=== PATIENT | male | born 1990 | race Two or more races ===

== ENCOUNTER 2019-10-10 22:58 | Emergency (ER) | payer SELFPAY ==
[~2019-10-10] VITALS: Ht 172.7 cm; Wt 90.7 kg
--- NOTE | 2019-10-10 23:33 | NUR ---
BIB FROM STREET FOR ALCOHOL INTOXICATION. PT AWAKE, APPEARS INTOXICATED ON ARRIVAL. YELLING INCOHERENTLY. RESPIRATIONS EVEN AND UNLABORED. SKIN INTACT. NO ACUTE DISTRESS NOTED AT THIS TIME. WILL CONTINUE TO MONITOR
[2019-10-10 23:40] LABS: BASOPHILS # (AUTO) 0.1 /CMM (0.0-0.2); BASOPHILS % (AUTO) 0.8 % (0.0-2.0); EOSINOPHILS % (AUTO) 0.8 % (0.0-6.0); HEMATOCRIT 52 % (39-51); HEMOGLOBIN 16.9 g/dL (13.5-17.5); LYMPHOCYTES # (AUTO) 3.7 /CMM (0.8-4.8); LYMPHOCYTES % (AUTO) 32.4 % (20.0-44.0); MEAN CORPUSCULAR HGB CONC 33 g/dl (31.0-36.0); MEAN CORPUSCULAR VOLUME 89 fL (80-96); MONOCYTES % (AUTO) 8.9 % (2.0-12.0); NEUTROPHILS # (AUTO) 6.5 /CMM (1.8-8.9); NEUTROPHILS % (AUTO) 57.1 % (43.0-81.0); PLATELET COUNT (AUTO) 326 /CMM (150-450); RED BLOOD CELL COUNT(AUTO) 5.83 MIL/uL (4.5-6.0); WHITE BLOOD COUNT (AUTO) 11.3 K/uL (4.3-11.0)
[2019-10-10 23:53] LABS: CALCIUM, SERUM 8.6 mg/dL (8.5-10.1); CREATININE 0.7 mg/dL (0.6-1.3); POTASSIUM 3.5 mmol/L (3.5-5.1)
[2019-10-10 23:59] LABS: ALBUMIN 4.2 g/dL (3.4-5.0); BILIRUBIN,TOTAL 0.2 mg/dL (0.2-1.0); SALICYLATE 4.3 mg/dL (2.8-20.0); TOTAL PROTEIN, SERUM 8.5 g/dL (6.4-8.2)
--- NOTE | 2019-10-11 00:07 | NUR ---
UNABLE TO OBTAIN EKG DUE TO MOVEMENT FROM PATIENT. WILL ATTEMPT AGAIN LATER.
[2019-10-11] MEDS ORDERED: IV NS 0.9% 1,000 ML IV ONE (00:30)
--- NOTE | 2019-10-11 00:33 | NUR ---
PT TAKEN TO CT
--- NOTE | 2019-10-11 01:00 | NUR ---
PT UNABLE TO PROVIDE URINE SAMPLE AT THIS TIME. MD BENNETT
--- NOTE | 2019-10-11 01:02 | NUR ---
UNABLE TO OBTAIN EKG DUE TO MOVEMENT FROM PATIENT. WILL ATTEMPT AGAIN LATER.
--- NOTE | 2019-10-11 01:27 | NUR ---
ER DOC OKAY CANCELLING EKG ORDER AND ONLY NEED 4 LEAD RYTHM STRIP.
--- NOTE | 2019-10-11 01:35 | NUR ---
PT ON CONSTANT OBSERVATION. 1:1 SITTER AT BEDSIDE FOR SAFETY. FALL PRECAUTIONS STILL IMPLEMENTED. NO ACUTE DISTRESS NOTED. WILL CONTINUE TO MONITOR.
--- NOTE | 2019-10-11 03:12 | NUR ---
PT ON CONSTANT OBSERVATION. 1:1 SITTER AT BEDSIDE FOR SAFETY. STILL ON FALL PRECAUTIONS WELL. NO ACUTE DISTRESS NOTED. WILL CONTINUE TO MONITOR.
--- NOTE | 2019-10-11 04:19 | NUR ---
PT ASLEEP AND ON CONSTANT OBSERVATION. 1:1 SITTER AT BEDSIDE FOR SAFETY. STILL ON FALL PRECAUTIONS WELL. NO ACUTE DISTRESS NOTED. WILL CONTINUE TO MONITOR.
--- NOTE | 2019-10-11 07:22 | NUR ---
PT ASLEEP AND ON CONSTANT OBSERVATION. 1:1 SITTER AT BEDSIDE FOR SAFETY. STILL ON FALL PRECAUTIONS WELL. NO ACUTE DISTRESS NOTED. WILL CONTINUE TO MONITOR.
--- NOTE | 2019-10-11 07:23 | NUR ---
REPORT GIVEN TO ELPIDIO MINA FOR JERZY
--- NOTE | 2019-10-11 07:33 | NUR ---
PT AWAKE, AAOX4. AMBULATORY WITH STEADY GAIT. PER DR. JEREZ, PT MEDICALLY CLEARED FOR DISCHARGE. Patient given written and verbal discharge instructions. Patient verbalizes understanding of instructions. Patient is ambulatory with steady gait. Refuses offer of detention placement. Patient given list of available shelters in surrounding area. IV removed. Catheter intact and site benign. Pressure and 4x4 applied to site. No bleeding noted.
[2019-10-11 07:34] VITALS: BP 126/74
== END 2019-10-11 07:34 | disposition home or self-care (01) ==
LOC: ER 22:59
DX: F10.129 Alcohol abuse with intoxication, unspecified (principal); R55 Syncope and collapse; R41.82 Altered mental status, unspecified; Y90.8 Blood alcohol level of 240 mg/100 ml or more
CPT/HCPCS: 36415; 70450; 71045; 72125; 80048; 80076; 80307; 80329; 85025; 96360; 99285; G0480; J7030